=== PATIENT | male | born 1985 | race Two or more races ===

== ENCOUNTER 2019-07-12 08:51 | Emergency (ER) | payer MEDICAID ==
[~2019-07-12] VITALS: Ht 175.3 cm; Wt 83.9 kg
[~2019-07-12 08:51] MED LIST: ATIVAN1 MG ORAL; AUGMENTIN 500-1 EACH ORAL; IBUPROFEN600 MG ORAL; IBUPROFEN800 MG ORAL; NORCO 5-325 TA1 EACH ORAL; PEPCID40 MG PO
[2019-07-12 09:02] VITALS: BP 149/98
--- NOTE | 2019-07-12 09:05 | NUR ---
ED Nurse Note: Pt. walked in from home, c/o sore throat x2 days and fever at home for a few days. Pt states he had alcohol withdrawals 1 week ago. Pt aaox4, no respiratory distress on room air.
--- NOTE | 2019-07-12 09:07 | NUR ---
ED Nurse Note: ERMD at bedside.
[2019-07-12] MEDS ORDERED: Dexamethasone 4mg/ml vial IVP ONE (09:15)
[2019-07-12] MEDS ORDERED: Ketorolac 60mg Inj IM ONE (09:15)
--- NOTE | 2019-07-12 09:15 | Emergency Room Report ---
History of Present Illness General Chief Complaint: Sore Throat Source: Patient Present Illness HPI 33-year-old male presents with sore throat fever/chills x2 days, patient wanted his throat checked out, he has an achy pain aggravated with food, severity is mild, symptoms are intermittent alleviated by not eating, patient presents for evaluation. Allergies: Coded Allergies: No Known Allergies (Unverified , 10/16/17) Patient History Past Medical History: see triage record Social History: Reports: alcohol use Reviewed Nursing Documentation: PMH: Agreed; PSxH: Agreed Nursing Documentation-PMH Past Medical History: No Stated History Review of Systems All Other Systems: negative except mentioned in HPI Physical Exam Vital Signs Date Time Temp Pulse Resp B/P (MAP) Pulse Ox O2 Delivery O2 Flow Rate FiO2 07/12/19 08:54 99.5 88 18 149/98 (115) 99 Room Air General Appearance: well appearing, no apparent distress Head: normocephalic, atraumatic ENT: hearing grossly normal, normal pharynx, normal voice, uvula midline, moist mucus membranes, other - No tonsillar exudate, no pharyngeal erythema no tonsillar swelling, Neck: full range of motion, supple Respiratory: lungs clear, normal breath sounds, no respiratory distress, speaking full sentences Cardiovascular #1: regular rate, rhythm, no edema, no gallop Musculoskeletal: no calf tenderness Neurologic: alert, responsive, normal gait Psychiatric: mood/affect normal Skin: no rash Medical Decision Making Diagnostic Impression: Primary Impression: Pharyngitis Qualified Codes: J02.9 - Acute pharyngitis, unspecified ER Course Patient most likely with viral pharyngitis, no red flags of sore throat disposition home with return precautions Last Vital Signs Date Time Temp Pulse Resp B/P (MAP) Pulse Ox O2 Delivery O2 Flow Rate FiO2 07/12/19 09:02 99.5 88 18 149/98 99 Room Air Disposition: HOME, SELF-CARE Condition: Stable Referrals: [facility] Sonya Couch. [facility] Patient Instructions: Pharyngitis, [id number] Additional Instructions: The patient was provided with discharge instructions, notified to follow-up with a primary care doctor and or specialist in the next 24-48 hours, and to return to the ED if they have worsening of their symptoms. Please note that this report is being documented using [employer] technology. This can lead to erroneous entry secondary to incorrect interpretation by the dictating instrument. Ant Babb MD Jul 12, 2019 09:15
--- NOTE | 2019-07-12 09:23 | NUR ---
ER DISCHARGE NOTE: Patient is cleared to be discharged per ERMD, pt is aox4, on room air, with stable vital signs. pt was given dc instructions, pt was able to verbalize understanding, pt id band removed without. pt is able to ambulate with steady gait. pt took all belongings.
[2019-07-12 10:14] VITALS: BP 129/72
== END 2019-07-12 09:23 | disposition home or self-care (01) ==
LOC: EMR 09:22
DX: J02.9 Acute pharyngitis, unspecified (principal)
CPT/HCPCS: 96372; 96374; J1100; Z7502; 99284

== ENCOUNTER 2019-11-11 12:24 | Emergency (ER) | payer MEDICAID ==
[~2019-11-11] VITALS: Ht 172.7 cm; Wt 83.9 kg
--- NOTE | 2019-11-11 13:53 | Emergency Room Report ---
History of Present Illness General Chief Complaint: Diarrhea Source: Patient Present Illness HPI 33-year-old male presents to the emergency department complaining of intermittent 6 out of 10 severity lower abdominal cramping with profuse diarrhea x1 week. Patient denies nausea, vomiting, fevers or chills. Patient reports several ill contacts at work amongst his coworkers. Patient reports only recent travel was to [place] which was over a month ago. Patient denies blood in the stool he denies black tarry stools. Patient does report history of lactose intolerance. He denies recent antibiotic use. Patient reports he has been using [id number] antidiarrheal medications with relief of his symptoms however he states he stopped taking them and his diarrhea returned. Patient reports he is able to keep down fluids and food. Patient denies dizziness, syncope or weakness. He denies diaphoresis. Patient denies significant past medical history. No other aggravating or relieving factors. Allergies: Coded Allergies: No Known Allergies (Unverified , 10/16/17) Patient History Past Medical History: see triage record Past Surgical History: none Pertinent Family History: none Immunizations: UTD Reviewed Nursing Documentation: PMH: Agreed; PSxH: Agreed Nursing Documentation-PMH Past Medical History: No Stated History Review of Systems All Other Systems: negative except mentioned in HPI Physical Exam Vital Signs Date Time Temp Pulse Resp B/P (MAP) Pulse Ox O2 Delivery O2 Flow Rate FiO2 11/11/19 12:33 98.4 72 17 126/77 (93) 97 Room Air Sp02 EP Interpretation: reviewed, normal General Appearance: no apparent distress, alert, GCS 15, non-toxic Head: normocephalic, atraumatic Eyes: bilateral eye normal inspection, bilateral eye PERRL, bilateral eye conjunctivae pale ENT: hearing grossly normal, normal voice Neck: full range of motion Respiratory: lungs clear, normal breath sounds, speaking full sentences Cardiovascular #1: regular rate, rhythm Gastrointestinal: normal bowel sounds - Hyperactive bowel sounds in all 4 quadrants., non tender, soft, no peritonitis, non-distended, no guarding Musculoskeletal: normal range of motion, gait/station normal, non-tender Neurologic: alert, motor strength/tone normal, oriented x3, sensory intact, responsive, speech normal Psychiatric: judgement/insight normal Medical Decision Making PA Attestation Dr. Peters is my supervising Physician whom patient management has been discussed with. Diagnostic Impression: Primary Impression: Diarrhea in adult patient ER Course 33-year-old male presents to the emergency department complaining of intermittent 6 out of 10 severity lower abdominal cramping with profuse diarrhea x1 week. Patient denies nausea, vomiting, fevers or chills. Patient reports several ill contacts at work amongst his coworkers. Patient reports only recent travel was to [place] which was over a month ago. Patient denies blood in the stool he denies black tarry stools. Patient does report history of lactose intolerance. He denies recent antibiotic use. Patient reports he has been using [id number] antidiarrheal medications with relief of his symptoms however he states he stopped taking them and his diarrhea returned. Patient reports he is able to keep down fluids and food. Patient denies dizziness, syncope or weakness. He denies diaphoresis. Patient denies significant past medical history. No other aggravating or relieving factors. Ddx considered but are not limited to GE, C. diff, colitis, acute appy, SBO, Cyclical Vomiting secondary to THC, Dehydration, Vital signs: pt. is afebrile, H&PE are most consistent with GE most likely viral in etiology, no evidence to suggest acute abdomen on physical exam. ORDERS: -None required at this time, the dx is clinical. ED INTERVENTIONS: -I do not identify an emergent condition at this time. With current presentation , pt. is stable for close outpatient follow up and conservative treatment. D/ w pt. to return promptly to ED with worsening or new symptoms.- Pt. verbalizes' understanding and agreement with proposed treatment plan.proposed treatment plan. DISCHARGE: At this time pt. is stable for d/c to home. Will provide printed patient care instructions, and any necessary prescriptions. Care plan and follow up instructions have been discussed with the patient prior to discharge. Last Vital Signs Date Time Temp Pulse Resp B/P (MAP) Pulse Ox O2 Delivery O2 Flow Rate FiO2 11/11/19 12:33 98.4 72 17 126/77 (93) 97 Room Air Disposition: HOME, SELF-CARE Condition: Stable Patient Instructions: Diarrhea, Adult, Food Choices to Help Relieve Diarrhea, Adult Additional Instructions: Take medications as directed. Follow up with a Primary Care Provider in 3-5 days, even if your symptoms have resolved. Return sooner to ED if new symptoms occur, or current symptoms become worse. - Please note that this Emergency Department Report was dictated using [employer] technology software, occasionally this can lead to erroneous entry secondary to interpretation by the dictation equipment. Peggy Meeks Nov 11, 2019 13:53
[2019-11-11] MEDS ORDERED: PROBIOTIC & AC1 EAC1 PO (13:55)
[2019-11-11] MEDS ORDERED: DICYCLOMINE HCL10 MG ORAL (13:55)
[2019-11-11 16:51] VITALS: BP 126/77
[2019-11-11 16:52] VITALS: BP 126/77
--- NOTE | 2019-11-11 16:53 | NUR ---
discharged home with instruction and rx follow up with pmd
== END 2019-11-11 16:54 | disposition home or self-care (01) ==
LOC: EMR 13:45
DX: R19.7 Diarrhea, unspecified (principal)
CPT/HCPCS: 99282